=== PATIENT | male | born 1990 | race Caucasian/White ===

== ENCOUNTER → 2017-08-17 | Outpatient (CLI) | payer BC ==
[~2017-08-17] MED LIST: AZITHROMYCIN 2250 MG PO; FLEXERIL PO; HYDROCODON-ACE1 EAC7 PO; PROTONIX40 M2 PO; RITALIN5 MG PO; ZOFRAN ODT4 MG PO
== END ==
LOC: M.RAD 14:07
DX: M25.531 Pain in right wrist (principal); M25.532 Pain in left wrist; M79.641 Pain in right hand; M79.642 Pain in left hand; M79.89 Other specified soft tissue disorders

== ENCOUNTER 2018-11-03 20:18 | Emergency (ER) | payer BC ==
[~2018-11-03] VITALS: Ht 185.4 cm; Wt 122.5 kg
[2018-11-03] MEDS ORDERED: NORCO 7.5-3251 EACH PO (22:11)
[2018-11-03] MEDS ORDERED: CLEOCIN HCL150 MG PO (22:11)
[2018-11-03 22:31] VITALS: BP 146/86
== END 2018-11-03 22:33 | disposition home or self-care (01) ==
LOC: M.ERS 20:18
DX: S61.313A Laceration without foreign body of left middle finger with damage to nail, initial encounter (principal); F17.220 Nicotine dependence, chewing tobacco, uncomplicated; K21.9 Gastro-esophageal reflux disease without esophagitis; F98.8 Other specified behavioral and emotional disorders with onset usually occurring in childhood and adolescence; Z88.1 Allergy status to other antibiotic agents; Z88.0 Allergy status to penicillin; Z88.2 Allergy status to sulfonamides; W23.1XXA Caught, crushed, jammed, or pinched between stationary objects, initial encounter; Y92.89 Other specified places as the place of occurrence of the external cause; Y93.89 Activity, other specified; Y99.8 Other external cause status

== ENCOUNTER 2021-01-07 14:03 | Inpatient (IN) | payer BC ==
[~2021-01-07] VITALS: Ht 185.4 cm; Wt 131.5 kg
[~2021-01-07 14:03] MED LIST changes: +CLEOCIN HCL150 MG PO; +NORCO 7.5-3251 EACH PO
[2021-01-07 14:13] VITALS: BP 175/102
[2021-01-07 15:05] LABS: ABSOLUTE LYMPHOCYTES 0.3 thou/uL (0.8-5.3); ABSOLUTE MONOCYTES 0.2 thou/uL (0.0-1.2); ABSOLUTE NEUTROPHILS 6.2 thou/uL (1.6-8.1); BASOPHILS 0.3 %; HEMATOCRIT 50.7 % (42.0-52.0); LYMPHOCYTES 3.8 %; MCH 30.8 pg (26.0-34.0); MCHC 33.5 g/dL (28.0-37.0); MONOCYTES 2.7 %; MPV 7.3 fl. (7.2-11.1); NUCLEATED RBCS 0 /100WBC; PLATELET COUNT* 241 thou/uL (150-400); POLYS 93.2 %; RBC 5.51 mil/uL (4.50-6.00); RDW-CV 14.2 % (10.5-14.5); WBC 6.7 thou/uL (4.0-11.0)
[2021-01-07] MEDS ORDERED: LISINOPRIL5 MG PO (15:13)
[2021-01-07 15:19] LABS: CALCIUM 8.7 mg/dL (8.5-10.1); CREATININE 1.7 mg/dL (0.6-1.3)
[2021-01-07 15:37] LABS: TOTAL BILIRUBIN 0.3 mg/dL (<0.1-1.0); TOTAL PROTEIN 7.7 g/dL (6.4-8.2)
[2021-01-07 16:16] VITALS: BP 150/84
[2021-01-07 16:35] VITALS: BP 149/91
[2021-01-07] MEDS ORDERED: PROAIR HFA8.5 GM PO (17:03)
[2021-01-07] MEDS ORDERED: DORYX MPC120 MG PO (17:04)
[2021-01-07] MEDS ORDERED: MONTELUKAST SODI4 M1 PO (17:05)
[2021-01-07] MEDS ORDERED: PREDNISONE 10 M10 M1 PO (17:05)
--- NOTE | 2021-01-07 17:13 | EKG ---
[place] [address] ELECTROCARDIOGRAM REPORT Name: DIOGO DING Room: [address] ADM IN .R.#: [id number] Admission: 01/07/21 Attend Phys: Moses June, Discharge: Date of : 88 Date of Service: 01/07/21 1456 Report #: [id number] THIS REPORT FOR: //name// [facility] ED Test Date: 2021-01-07 Test Time: 14:56:24 Pat Name: DIOGO DING Department: Room: [facility] Gender: M Global Program Manager: JACK : 1990 Requested By: Salvatore Garcia Order Number: [id number] MD: Kobi Grimaldo Measurements Intervals [place] Rate: 89 P: 42 NM: 134 QRS: 38 QRSD: 84 T: 48 QT: 348 QTc: 424 Interpretive Statements Sinus rhythm Consider right atrial enlargement Baseline wander in lead(s) III No previous ECG available for comparison Electronically Signed On 01-07-2021 17:12:55 CDT by Kobi Grimaldo [email or web address] <ELECTRONICALLY SIGNED> By: Kobi Grimaldo MD, [facility] 01/07/21 1712 1456 1456 Kobi Grimaldo MD, [facility] /EPI
[2021-01-07 22:40] VITALS: BP 145/87
[2021-01-08 00:42] VITALS: BP 150/86
[2021-01-08 05:08] VITALS: BP 153/94
[2021-01-08 07:30] VITALS: BP 145/90
[2021-01-08 08:29] LABS: HEMATOCRIT 47.7 % (42.0-52.0); HEMOGLOBIN 16.1 gm/dL (14.0-18.0); MCH 30.8 pg (26.0-34.0); MCHC 33.8 g/dL (28.0-37.0); MCV 91.1 fL (80.0-100.0); MPV 7.4 fl. (7.2-11.1); NUCLEATED RBCS 0 /100WBC; PLATELET COUNT* 284 thou/uL (150-400); RBC 5.23 mil/uL (4.50-6.00); RDW-CV 14.2 % (10.5-14.5); WBC 7.8 thou/uL (4.0-11.0)
[2021-01-08 08:53] LABS: CALCIUM 8.3 mg/dL (8.5-10.1); CREATININE 1.4 mg/dL (0.6-1.3); POTASSIUM 4.4 mmol/L (3.5-5.1)
[2021-01-08 09:15] LABS: ABSOLUTE LYMPHOCYTES 0.2 thou/uL (0.8-5.3); ABSOLUTE MONOCYTES 0.2 thou/uL (0.0-1.2); ABSOLUTE NEUTROPHILS 7.4 thou/uL (1.6-8.1); PLATELET ESTIMATE ADEQUATE
[2021-01-08 09:16] LABS: ANISOCYTOSIS 1+; POIKILOCYTOSIS 1+
[2021-01-08 11:45] LABS: AMP/METHAMP Negative (Negative); BARBITURATES Negative (Negative); BENZODIAZEPINES Negative (Negative); COCAINE Negative (Negative); METHADONE Negative (Negative); OPIATES Negative (Negative); PCP Negative (Negative); THC POSITIVE (Negative)
[2021-01-08 12:00] VITALS: BP 158/83
[2021-01-08 14:57] LABS: CALCIUM 8.5 mg/dL (8.5-10.1); CREATININE 1.3 mg/dL (0.6-1.3); MAGNESIUM 2.3 mg/dL (1.8-2.4); POTASSIUM 5.1 mmol/L (3.5-5.1)
[2021-01-08 15:39] LABS: ALBUMIN 2.6 g/dL (3.4-5.0); DIRECT BILIRUBIN 0.1 mg/dL (<0.1-0.3); TOTAL BILIRUBIN 0.3 mg/dL (<0.1-1.0); TOTAL PROTEIN 7.2 g/dL (6.4-8.2)
[2021-01-08 16:00] VITALS: BP 151/93
[2021-01-08 21:00] VITALS: BP 148/82
[2021-01-09] VITALS (7 sets, daily range): BP systolic 116–144; BP diastolic 77–98
[2021-01-09 04:52] LABS: HEMATOCRIT 47.4 % (42.0-52.0); HEMOGLOBIN 15.8 gm/dL (14.0-18.0); MCH 30.7 pg (26.0-34.0); MCHC 33.3 g/dL (28.0-37.0); MCV 92.3 fL (80.0-100.0); MPV 7.1 fl. (7.2-11.1); RBC 5.14 mil/uL (4.50-6.00); RDW-CV 14.5 % (10.5-14.5); WBC 9.3 thou/uL (4.0-11.0)
[2021-01-09 05:23] LABS: CALCIUM 8.7 mg/dL (8.5-10.1); CREATININE 1.3 mg/dL (0.6-1.3); POTASSIUM 5.1 mmol/L (3.5-5.1)
[2021-01-09 12:17] LABS: BE 3.4 mmol/L (-2 to +3); PCO2 37.5 mmHg (35.0-45.0); PO2 77.1 mmHg (75.0-100.0); pH 7.474 (7.340-7.450)
[2021-01-09 16:33] LABS: ALBUMIN 2.4 g/dL (3.4-5.0); CALCIUM 8.5 mg/dL (8.5-10.1); CREATININE 1.3 mg/dL (0.6-1.3); POTASSIUM 4.5 mmol/L (3.5-5.1); TOTAL BILIRUBIN 0.3 mg/dL (<0.1-1.0); TOTAL PROTEIN 6.9 g/dL (6.4-8.2)
--- NOTE | 2021-01-09 17:38 | 2DMMODE ---
[place] [address] 2 D/M-MODE ECHOCARDIOGRAM Name: TIMURDIOGO T Room: [address] IN [facility]#: [id number] Admission: 01/07/21 Attend Phys: Moses June, Discharge: Date of : 88 Date of Service: 01/09/21 1738 Report #: [id number] THIS REPORT FOR: cc: Oliva Lowry Linda J. DO Liston, Michael J. MD [facility] ~ APPROVED REPORT Study performed: 01/09/2021 16:12:29 EXAM: Comprehensive 2D, Doppler, and color-flow Echocardiogram Patient Location: In-Patient Room #: [facility] Status: routine BSA: 2.52 HR: 81 bpm BP: 141/87 mmHg Rhythm: NSR Other Information Study Quality: Good Indications Dyspnea 2D Dimensions IVSd: 11.72 (7-11mm) LVOT Diam: 22.17 (18-24mm) LVDd: 58.29 mm PWd: 9.33 (7-11mm) Ascending Ao: 29.71 (22-36mm) LVDs: 32.54 (25-40mm) Aortic Root: 35.06 mm Volumes Left Atrial Volume (Systole) LA ESV Index: 16.20 mL/m2 Aortic Valve AoV Peak Amadou.: 1.20 m/s AO Peak Gr.: 5.80 mmHg LVOT Max P.69 mmHg AO Mean Gr.: 3.08 mmHg LVOT Mean P.56 mmHg LVOT Max V: 1.19 m/s AO V2 VTI: 22.63 cm LVOT Mean V: 0.72 m/s ROSS (VTI): 3.97 cm2 LVOT V1 VTI: 23.24 [place] [address] 2 D/M-MODE ECHOCARDIOGRAM Name: DIOGO DING Room: [address] IN ..#: [id number] Admission: 01/07/21 Attend Phys: Moses June, Discharge: Date of : 88 Date of Service: 01/09/21 1738 Report #: [id number] Mitral Valve E/A Ratio: 1.25 MV Decel. Time: 394.93 ms MV E Max Amadou.: 0.57 m/s MV PHT: 114.53 ms MVA (PHT): 1.92 cm2 TDI E/Lateral E': 3.80 E/Medial E': 4.07 Medial E' Amadou.: 0.14 m/s Lateral E' Amadou.: 0.15 m/s Pulmonary Valve PV Peak Amadou.: 0.98 m/s PV Peak Gr.: 3.87 mmHg Left Ventricle The left ventricle is normal size. There is normal LV segmental wall motion. There is normal left ventricular wall thickness. Left ventricular systolic function is normal. LVEF is 55-60%. The left ventricular diastolic function is normal. Right Ventricle The right ventricle is normal size. The right ventricular systolic function is normal. Atria The left atrium size is normal. The right atrium size is normal. Aortic Valve The aortic valve is normal in structure. No aortic regurgitation is present. There is no aortic valvular stenosis. Mitral Valve The mitral valve is normal in structure. There is no mitral valve regurgitation noted. No evidence of mitral valve stenosis. Tricuspid Valve The tricuspid valve is normal in structure. There is no tricuspid valve regurgitation noted. Pulmonic Valve The pulmonary valve is normal in structure. There is no pulmonic valvular regurgitation[place] [address] 2 D/M-MODE ECHOCARDIOGRAM Name: TIMURDIOGO CANCINO [place] Room: [address] IN [facility]#: [id number] Admission: 01/07/21 Attend Phys: Moses June, Discharge: Date of : 88 Date of Service: 01/09/21 1738 Report #: [id number] The aortic root is normal in size. IVC is normal in size and collapses >50% with inspiration. Pericardium There is no pericardial effusion. <Conclusion> The left ventricle is normal size. There is normal left ventricular wall thickness. Left ventricular systolic function is normal. LVEF is 55-60%. The left ventricular diastolic function is normal. There is normal LV segmental wall motion. IVC is normal in size and collapses >50% with inspiration. <ELECTRONICALLY SIGNED> By: Cabrera Lowe MD, FACC 01/09/21 1738 1738 1738 Cabrera Lowe MD, FACC /INF
--- NOTE | 2021-01-09 22:06 | CON ---
[address] [address] CONSULTATION Name: DIOGO DING [place] Room: [address] IN M.R.#: [id number] Admission: 01/07/21 Attend Phys: Moses June MD Discharge: Date of : 88 Report #: [id number] THIS REPORT FOR: cc: Oliva Lowry Linda J. DO Pervez, Adeel MD ~ DATE OF CONSULTATION: 01/08/2021 REQUESTING PHYSICIAN: Dr. Moses June. INDICATION FOR CONSULTATION: Acute hypoxemic respiratory failure secondary to COVID-19. HISTORY OF PRESENT ILLNESS: A 30-year-old gentleman, past medical history includes a history of smoking. He now uses E-cigarettes. He does not have a previous history of COPD. The patient was diagnosed with COVID-19 about a week ago. He has taken outpatient antibiotics, started doxycycline on Thursday; however, he continues to have increase in shortness of breath, has also been coughing. He has been bringing up significant amounts of yellow sputum and some hemorrhagic sputum as well. He has a cup, which is partly full of sputum beside his bedside. He denies any upper respiratory complaints or fever. There is only mild swelling of lower extremities. REVIEW OF SYSTEMS: 12 points is negative except as mentioned above; however, the patient is severely hypoxemic and is on a heated high-flow nasal cannula with 85% FiO2 and 45 liters flow to maintain O2 saturation in the low 90s. The patient also is noted to be in rhabdomyolysis. His CPK was around 11,000 on initial presentation and he had a creatinine elevated to 1.7, which since then has been improving. The patient has been fluid resuscitated from the Emergency Room. PAST MEDICAL HISTORY: Concussion, right shoulder surgery, GERD, ADHD, has previously been diagnosed. It is not fully clear to me as to whether he may have had obstructive sleep apnea instead which has similar symptoms, back pain, wisdom tooth removal, obesity, body mass index 38, hypertension. SOCIAL HISTORY: Extensive history of smoking. I am unable to quantify exactly at this time. He says he now uses E-cigarettes, also chews tobacco. Does use alcohol, but there is no known history of heavy alcohol use. No known history of illegal drug use. CURRENT MEDICATIONS: List in spotflux reviewed. HOME MEDICATIONS: List in spotflux [place] [address] CONSULTATION Name: DIOGO DING Room: [address]#: [id number] Admission: 01/07/21 Attend Phys: Moses June MD Discharge: Date of : 88 Report #: [id number] ALLERGIES: PENICILLIN, SULFONAMIDE ANTIBIOTICS, AND AZITHROMYCIN. However, he tolerates cephalosporins without problems. FAMILY HISTORY: No pertinent family history. PHYSICAL EXAMINATION: GENERAL: He is alert, awake and oriented. VITAL SIGNS: He is severely hypoxemic, 85% FiO2, 45 liters flow, heated high-flow nasal cannula, saturating 91%. Pulse is 94 and blood pressure is 158/83. His respiratory rate is in the low 20s. His temperature is 37.1. Body mass index 38. HEENT: Head is normocephalic and atraumatic. Pupils are equal and reactive. There is no throat erythema. He has a narrow airway. NECK: Does not show raised JVP asymmetry, mass or lymph nodes. CHEST: Symmetrical expansion on inspection and palpation. On auscultation, breath sounds are bilaterally equal, but decreased. Expirations are prolonged. There are occasional end expiratory wheezes. HEART: Regular. There is no murmur. ABDOMEN: Soft and nontender. EXTREMITIES: Lower extremities show trace edema, no calf tenderness. SKIN: Dry and intact. NEUROLOGIC: Moves all extremities bilaterally equally and spontaneously with no focal deficit identified. LABORATORY DATA: The patient's chest x-ray performed yesterday is reviewed and is consistent with extensive bilateral infiltrates, consistent with COVID-19. Considering that on his lab work, he has 8% bands and he also had purulent sputum. I suspect that there is a secondary bacterial infection as well. ASSESSMENT AND PLAN: 1. Acute hypoxemic respiratory failure. Continue to titrate oxygen. I suspect that he may have underlying obstructive sleep apnea. We will move him to a negative pressure room and start him on a BiPAP while asleep. We preferred prone position while asleep and if not possible, then on sides, avoid sleeping supine, continue out of bed to chair. 2. COVID-19. Continue with dexamethasone. See discussion regarding steroid dose as below. Overall, the benefit of remdesivir also appears to be greater than the risk and therefore, I recommend continuing the remdesivir as well. His LFTs were elevated yesterday. I will repeat LFTs today and then reassess. I would have considered Actemra; however, this is not available at this time, I do not feel strongly either way regarding giving him or holding off of convalescent plasma. There is one 2 unit already ordered. I feel that this is a reasonable option. 2. Bronchospasm. He is bronchospastic. For this reason, I recommend that we [address] [id number] CONSULTATION Name: DIOGO DING Room: [address] IN [facility]#: [id number] Admission: 01/07/21 Attend Phys: Moses June MD Discharge: Date of : 88 Report #: [id number] give him nebulized bronchodilators as well. In addition, it is for this reason that I am going ahead and giving him Solu-Medrol and considering that he is significantly hypoxemic as well, I increased the dexamethasone dose. In order to avoid hyperglycemia, we will go ahead and put him on an insulin sliding scale. 3. Pulmonary infiltrates/bandemia/purulent/hemorrhagic sputum. He has significant sputum production. See discussion of cup as above. He also has 8% bands. This is consistent with a superimposed bacterial infection. I will go ahead and treat him initially with Levaquin and Zyvox after obtaining cultures. The plan will be to continue Levaquin for a week. If he improves and there is no MRSA cultured, I will plan to discontinue Zyvox sooner. 4. DVT prophylaxis/evaluation for thromboembolic phenomena. There is small amount of blood in his sputum; however, the benefit of giving him prophylactic dose Lovenox still appear to outweigh risks and therefore, I would continue. We will also do venous Dopplers. 5. Rhabdomyolysis with acute renal failure. There is an elevation in creatinine, initially up to 1.7. There is also CPK elevated to 11,000. I will repeat a CPK now, creatinine which I have ordered is already back and it is coming down. If CPK is significantly elevated, then this will be an indication to continue IV fluids and this is one of the rare indications in which IV fluids and Lasix are at times recommended simultaneously and if CPK is high, then we will give him fluids to continue to remove CPK and at the same time, we will give him Lasix in order to avoid fluid overload. 6. Elevated LFTs. Repeat pending. We will review. If they are not increasing further, then my plan is to continue remdesivir, but we will need to follow this closely. 7. Obesity/suspected underlying obstructive sleep apnea. 8. The patient is critically ill at this time. Total time spent providing critical care to this patient today exceeds 40 minutes. <ELECTRONICALLY SIGNED> By: Kenneth Hand MD 01/09/21 2206 1409 1824Akatya Hand MD /nt
[2021-01-10 00:03] VITALS: BP 122/55; BP 128/50
[2021-01-10 04:19] VITALS: BP 141/77
[2021-01-10 05:20] LABS: ABSOLUTE LYMPHOCYTES 0.6 thou/uL (0.8-5.3); ABSOLUTE MONOCYTES 0.6 thou/uL (0.0-1.2); BASOPHILS 0.2 %; HEMATOCRIT 46.8 % (42.0-52.0); HEMOGLOBIN 15.5 gm/dL (14.0-18.0); LYMPHOCYTES 7.7 %; MCH 30.6 pg (26.0-34.0); MCHC 33.1 g/dL (28.0-37.0); MCV 92.5 fL (80.0-100.0); MONOCYTES 6.9 %; NUCLEATED RBCS 0 /100WBC; PLATELET COUNT* 395 thou/uL (150-400); POLYS 85.2 %; RBC 5.06 mil/uL (4.50-6.00); WBC 8.2 thou/uL (4.0-11.0)
[2021-01-10 05:34] LABS: ALBUMIN 2.4 g/dL (3.4-5.0); CALCIUM 8.7 mg/dL (8.5-10.1); CREATININE 1.4 mg/dL (0.6-1.3); MAGNESIUM 2.4 mg/dL (1.8-2.4); POTASSIUM 4.8 mmol/L (3.5-5.1); TOTAL BILIRUBIN 0.3 mg/dL (<0.1-1.0); TOTAL PROTEIN 6.8 g/dL (6.4-8.2)
[2021-01-10 08:00] VITALS: BP 135/72
[2021-01-10 12:45] VITALS: BP 142/89
[2021-01-10 15:35] LABS: CALCIUM 8.3 mg/dL (8.5-10.1); CREATININE 1.2 mg/dL (0.6-1.3); POTASSIUM 4.5 mmol/L (3.5-5.1)
[2021-01-10 15:51] LABS: PCO2 40.3 mmHg (35.0-45.0); pH 7.447 (7.340-7.450)
[2021-01-10 15:52] VITALS: BP 136/80
[2021-01-10 15:54] LABS: PO2 53.7 mmHg (75.0-100.0)
[2021-01-10 20:00] VITALS: BP 135/80
[2021-01-11 00:51] VITALS: BP 144/74
[2021-01-11 04:41] VITALS: BP 140/80
[2021-01-11 05:15] LABS: ABSOLUTE LYMPHOCYTES 0.7 thou/uL (0.8-5.3); ABSOLUTE MONOCYTES 0.9 thou/uL (0.0-1.2); BASOPHILS 0.1 %; HEMATOCRIT 45.1 % (42.0-52.0); LYMPHOCYTES 8.3 %; MCH 30.5 pg (26.0-34.0); MCHC 33.4 g/dL (28.0-37.0); MCV 91.6 fL (80.0-100.0); MONOCYTES 10.1 %; NUCLEATED RBCS 0 /100WBC; PLATELET COUNT* 413 thou/uL (150-400); POLYS 81.5 %; RBC 4.93 mil/uL (4.50-6.00); RDW-CV 13.9 % (10.5-14.5); WBC 8.6 thou/uL (4.0-11.0)
[2021-01-11 05:46] LABS: ALBUMIN 2.6 g/dL (3.4-5.0); CALCIUM 8.2 mg/dL (8.5-10.1); CREATININE 1.4 mg/dL (0.6-1.3); MAGNESIUM 2.5 mg/dL (1.8-2.4); POTASSIUM 4.7 mmol/L (3.5-5.1); TOTAL BILIRUBIN 0.4 mg/dL (<0.1-1.0); TOTAL PROTEIN 6.6 g/dL (6.4-8.2)
[2021-01-11 08:00] VITALS: BP 126/70
[2021-01-11 12:30] VITALS: BP 139/82
[2021-01-11 15:54] VITALS: BP 127/79
[2021-01-11 20:00] VITALS: BP 143/84
[2021-01-12 00:25] VITALS: BP 120/58
[2021-01-12 04:33] VITALS: BP 133/80
[2021-01-12 05:22] LABS: ABSOLUTE LYMPHOCYTES 0.7 thou/uL (0.8-5.3); ABSOLUTE MONOCYTES 0.8 thou/uL (0.0-1.2); ABSOLUTE NEUTROPHILS 7.7 thou/uL (1.6-8.1); BASOPHILS 0.2 %; HEMATOCRIT 45.3 % (42.0-52.0); HEMOGLOBIN 15.4 gm/dL (14.0-18.0); LYMPHOCYTES 7.6 %; MCH 30.9 pg (26.0-34.0); MCHC 34.1 g/dL (28.0-37.0); MCV 90.8 fL (80.0-100.0); MONOCYTES 8.8 %; MPV 6.9 fl. (7.2-11.1); NUCLEATED RBCS 0 /100WBC; PLATELET COUNT* 437 thou/uL (150-400); POLYS 83.4 %; RBC 4.99 mil/uL (4.50-6.00); RDW-CV 13.5 % (10.5-14.5); WBC 9.2 thou/uL (4.0-11.0)
[2021-01-12 05:26] LABS: ALBUMIN 2.6 g/dL (3.4-5.0); CALCIUM 8.2 mg/dL (8.5-10.1); CREATININE 1.3 mg/dL (0.6-1.3); MAGNESIUM 2.6 mg/dL (1.8-2.4); POTASSIUM 5.4 mmol/L (3.5-5.1); TOTAL BILIRUBIN 0.5 mg/dL (<0.1-1.0); TOTAL PROTEIN 6.5 g/dL (6.4-8.2)
[2021-01-12 08:00] VITALS: BP 136/69
[2021-01-12 12:00] VITALS: BP 126/71
[2021-01-12 16:00] VITALS: BP 124/73
[2021-01-12 20:00] VITALS: BP 146/71
[2021-01-13 00:28] VITALS: BP 129/66
[2021-01-13 04:13] VITALS: BP 137/95
[2021-01-13 08:00] VITALS: BP 115/63
[2021-01-13 11:26] VITALS: BP 137/78
[2021-01-13 12:45] VITALS: BP 124/62
[2021-01-13 20:00] VITALS: BP 136/73
[2021-01-14] VITALS: BP 144/77
[2021-01-14 04:00] VITALS: BP 141/75
[2021-01-14 04:37] LABS: ABSOLUTE LYMPHOCYTES 0.8 thou/uL (0.8-5.3); ABSOLUTE MONOCYTES 0.9 thou/uL (0.0-1.2); ABSOLUTE NEUTROPHILS 9.7 thou/uL (1.6-8.1); BASOPHILS 0.1 %; HEMATOCRIT 47.9 % (42.0-52.0); HEMOGLOBIN 16.3 gm/dL (14.0-18.0); LYMPHOCYTES 7.2 %; MCH 30.8 pg (26.0-34.0); MCV 90.6 fL (80.0-100.0); MPV 6.8 fl. (7.2-11.1); NUCLEATED RBCS 0 /100WBC; PLATELET COUNT* 442 thou/uL (150-400); POLYS 84.7 %; RBC 5.29 mil/uL (4.50-6.00); RDW-CV 13.6 % (10.5-14.5); WBC 11.5 thou/uL (4.0-11.0)
[2021-01-14 04:54] LABS: ALBUMIN 2.7 g/dL (3.4-5.0); CALCIUM 8.4 mg/dL (8.5-10.1); CREATININE 1.5 mg/dL (0.6-1.3); MAGNESIUM 2.3 mg/dL (1.8-2.4); POTASSIUM 5.7 mmol/L (3.5-5.1); TOTAL BILIRUBIN 0.5 mg/dL (<0.1-1.0); TOTAL PROTEIN 6.1 g/dL (6.4-8.2)
[2021-01-14 08:00] VITALS: BP 123/68
[2021-01-14 12:00] VITALS: BP 136/63
[2021-01-14 13:10] LABS: BE -0.4 mmol/L (-2 to +3); PCO2 34.4 mmHg (35.0-45.0); pH 7.441 (7.340-7.450)
[2021-01-14 13:12] LABS: PO2 57.6 mmHg (75.0-100.0)
[2021-01-14 16:00] VITALS: BP 113/68
[2021-01-15 00:48] VITALS: BP 145/73
[2021-01-15 04:30] VITALS: BP 145/65
[2021-01-15 08:00] VITALS: BP 112/51
[2021-01-15 08:31] LABS: CREATININE 1.2 mg/dL (0.6-1.3); POTASSIUM 4.8 mmol/L (3.5-5.1)
[2021-01-15 12:00] VITALS: BP 124/79
[2021-01-15 16:00] VITALS: BP 122/65
[2021-01-15 16:31] LABS: BE 0.7 mmol/L (-2 to +3); PO2 76.4 mmHg (75.0-100.0); pH 7.439 (7.340-7.450)
[2021-01-15 16:34] LABS: ALBUMIN 2.7 g/dL (3.4-5.0); CALCIUM 8.3 mg/dL (8.5-10.1); CREATININE 1.2 mg/dL (0.6-1.3); POTASSIUM 4.9 mmol/L (3.5-5.1); TOTAL BILIRUBIN 0.5 mg/dL (<0.1-1.0); TOTAL PROTEIN 5.8 g/dL (6.4-8.2)
[2021-01-16 00:46] VITALS: BP 142/79
[2021-01-16 04:24] VITALS: BP 125/71
[2021-01-16 04:51] LABS: MPV 7.2 fl. (7.2-11.1); NUCLEATED RBCS 0 /100WBC
[2021-01-16 04:53] LABS: HEMATOCRIT 46.6 % (42.0-52.0); HEMOGLOBIN 15.7 gm/dL (14.0-18.0); MCH 30.3 pg (26.0-34.0); MCHC 33.7 g/dL (28.0-37.0); PLATELET COUNT* 419 thou/uL (150-400); RBC 5.18 mil/uL (4.50-6.00); RDW-CV 13.1 % (10.5-14.5); WBC 11.7 thou/uL (4.0-11.0)
[2021-01-16 05:25] LABS: ALBUMIN 2.5 g/dL (3.4-5.0); CALCIUM 8.2 mg/dL (8.5-10.1); CREATININE 1.1 mg/dL (0.6-1.3); MAGNESIUM 2.1 mg/dL (1.8-2.4); POTASSIUM 5.1 mmol/L (3.5-5.1); TOTAL BILIRUBIN 0.6 mg/dL (<0.1-1.0); TOTAL PROTEIN 5.9 g/dL (6.4-8.2)
[2021-01-16 06:05] LABS: ABSOLUTE LYMPHOCYTES 0.7 thou/uL (0.8-5.3); ABSOLUTE MONOCYTES 0.5 thou/uL (0.0-1.2); ABSOLUTE NEUTROPHILS 10.5 thou/uL (1.6-8.1); ANISOCYTOSIS 1+; PLATELET ESTIMATE INCREASED
[2021-01-16 06:06] LABS: POIKILOCYTOSIS 1+
[2021-01-16 07:20] VITALS: BP 129/78
[2021-01-16 11:25] VITALS: BP 134/67
[2021-01-16 17:20] VITALS: BP 152/76
[2021-01-16 19:30] VITALS: BP 138/81
[2021-01-17] VITALS: BP 134/78
[2021-01-17 04:00] VITALS: BP 117/63
[2021-01-17 05:03] LABS: ABSOLUTE BASOPHILS 0.1 thou/uL (0.0-0.2); ABSOLUTE MONOCYTES 0.8 thou/uL (0.0-1.2); ABSOLUTE NEUTROPHILS 13.6 thou/uL (1.6-8.1); BASOPHILS 0.4 %; HEMATOCRIT 49.6 % (42.0-52.0); HEMOGLOBIN 16.5 gm/dL (14.0-18.0); LYMPHOCYTES 6.3 %; MCHC 33.3 g/dL (28.0-37.0); MCV 90.1 fL (80.0-100.0); MONOCYTES 5.4 %; MPV 7.1 fl. (7.2-11.1); NUCLEATED RBCS 0 /100WBC; PLATELET COUNT* 447 thou/uL (150-400); POLYS 87.9 %; RBC 5.51 mil/uL (4.50-6.00); RDW-CV 13.1 % (10.5-14.5); WBC 15.5 thou/uL (4.0-11.0)
[2021-01-17 05:20] LABS: ALBUMIN 2.8 g/dL (3.4-5.0); CALCIUM 8.2 mg/dL (8.5-10.1); CREATININE 1.1 mg/dL (0.6-1.3); POTASSIUM 4.8 mmol/L (3.5-5.1); TOTAL BILIRUBIN 0.6 mg/dL (<0.1-1.0); TOTAL PROTEIN 6.4 g/dL (6.4-8.2)
[2021-01-17 08:30] VITALS: BP 139/77
[2021-01-17 12:00] VITALS: BP 118/43
[2021-01-17 16:00] VITALS: BP 112/54
[2021-01-17 20:00] VITALS: BP 101/62
[2021-01-18 00:01] VITALS: BP 98/65
[2021-01-18 04:00] VITALS: BP 102/69
[2021-01-18 08:35] VITALS: BP 102/66
[2021-01-18 09:28] LABS: ABSOLUTE LYMPHOCYTES 1.4 thou/uL (0.8-5.3); ABSOLUTE MONOCYTES 1.7 thou/uL (0.0-1.2); ABSOLUTE NEUTROPHILS 15.1 thou/uL (1.6-8.1); BASOPHILS 0.1 %; HEMATOCRIT 49.4 % (42.0-52.0); HEMOGLOBIN 16.9 gm/dL (14.0-18.0); LYMPHOCYTES 7.7 %; MCH 30.7 pg (26.0-34.0); MCHC 34.3 g/dL (28.0-37.0); MCV 89.6 fL (80.0-100.0); MONOCYTES 9.5 %; MPV 7.3 fl. (7.2-11.1); NUCLEATED RBCS 0 /100WBC; PLATELET COUNT* 443 thou/uL (150-400); POLYS 82.7 %; RBC 5.51 mil/uL (4.50-6.00); RDW-CV 13.3 % (10.5-14.5); WBC 18.2 thou/uL (4.0-11.0)
[2021-01-18 09:40] LABS: ALBUMIN 2.8 g/dL (3.4-5.0); CALCIUM 8.6 mg/dL (8.5-10.1); CREATININE 1.2 mg/dL (0.6-1.3); POTASSIUM 4.5 mmol/L (3.5-5.1); TOTAL BILIRUBIN 0.7 mg/dL (<0.1-1.0); TOTAL PROTEIN 6.3 g/dL (6.4-8.2)
[2021-01-18 12:16] VITALS: BP 122/71
[2021-01-18 16:00] VITALS: BP 116/70
[2021-01-18 19:45] VITALS: BP 119/66
[2021-01-19 00:32] VITALS: BP 100/53
[2021-01-19 04:29] VITALS: BP 112/62
[2021-01-19 04:31] LABS: HEMATOCRIT 49.8 % (42.0-52.0); HEMOGLOBIN 16.5 gm/dL (14.0-18.0); MCH 29.7 pg (26.0-34.0); MCHC 33.1 g/dL (28.0-37.0); MCV 89.7 fL (80.0-100.0); MPV 7.3 fl. (7.2-11.1); RBC 5.55 mil/uL (4.50-6.00); RDW-CV 13.3 % (10.5-14.5); WBC 15.5 thou/uL (4.0-11.0)
[2021-01-19 05:02] LABS: ALBUMIN 2.8 g/dL (3.4-5.0); CALCIUM 8.6 mg/dL (8.5-10.1); CREATININE 1.4 mg/dL (0.6-1.3); MAGNESIUM 2.4 mg/dL (1.8-2.4); POTASSIUM 5.2 mmol/L (3.5-5.1); TOTAL BILIRUBIN 0.7 mg/dL (<0.1-1.0); TOTAL PROTEIN 6.4 g/dL (6.4-8.2)
[2021-01-19 08:28] VITALS: BP 127/59
[2021-01-19 12:36] VITALS: BP 105/61
[2021-01-19 19:42] VITALS: BP 120/60
[2021-01-19 20:00] VITALS: BP 111/61
[2021-01-20] VITALS (7 sets, daily range): BP systolic 106–158; BP diastolic 61–74
[2021-01-20 04:44] LABS: HEMATOCRIT 49.5 % (42.0-52.0); HEMOGLOBIN 16.6 gm/dL (14.0-18.0); MCH 30.3 pg (26.0-34.0); MCHC 33.6 g/dL (28.0-37.0); MCV 90.4 fL (80.0-100.0); MPV 7.6 fl. (7.2-11.1); RBC 5.48 mil/uL (4.50-6.00); RDW-CV 13.3 % (10.5-14.5); WBC 15.9 thou/uL (4.0-11.0)
[2021-01-20 05:06] LABS: ALBUMIN 2.7 g/dL (3.4-5.0); CALCIUM 8.2 mg/dL (8.5-10.1); CREATININE 1.2 mg/dL (0.6-1.3); MAGNESIUM 2.3 mg/dL (1.8-2.4); POTASSIUM 4.6 mmol/L (3.5-5.1); TOTAL BILIRUBIN 0.6 mg/dL (<0.1-1.0)
[2021-01-20] MEDS ORDERED: LEXAPRO 10 MG T10 M1 PO (09:37)
[2021-01-20] MEDS ORDERED: PULMICORT0.5 MG/2 M INH (09:37)
[2021-01-20] MEDS ORDERED: NEBULIZER MISCELL (09:37)
[2021-01-20] MEDS ORDERED: OXYGEN MISCELL (09:37)
[2021-01-20] MEDS ORDERED: MUCINEX600 MG PO (09:37)
[2021-01-20] MEDS ORDERED: DEXAMETHASONE 22 M1 PO (09:37)
[2021-01-20] MEDS ORDERED: LASIX 20 MG TAB20 MG PO (09:37)
[2021-01-20] MEDS ORDERED: BROVANA15 MCG/2 M INH (09:37)
[2021-01-20] MEDS ORDERED: TESSALON PERLE100 MG PO (09:37)
[2021-01-20] MEDS ORDERED: IPRAT-ALBUT 0.5-3 ML INH (09:37)
[2021-01-21 04:40] VITALS: BP 115/52
[2021-01-21 08:00] VITALS: BP 104/57
[2021-01-21 12:00] VITALS: BP 141/76
[2021-01-21 16:00] VITALS: BP 124/67
[2021-01-21 20:20] VITALS: BP 120/67
[2021-01-22] VITALS (7 sets, daily range): BP systolic 99–147; BP diastolic 56–72
[2021-01-22 16:17] LABS: HEMATOCRIT 47.1 % (42.0-52.0); HEMOGLOBIN 16.5 gm/dL (14.0-18.0); MCH 31.1 pg (26.0-34.0); MCV 89.1 fL (80.0-100.0); MPV 7.5 fl. (7.2-11.1); NUCLEATED RBCS 0 /100WBC; RBC 5.29 mil/uL (4.50-6.00); RDW-CV 13.4 % (10.5-14.5)
[2021-01-22 16:23] LABS: PLATELET COUNT* 323 thou/uL (150-400)
[2021-01-22 16:32] LABS: CALCIUM 8.2 mg/dL (8.5-10.1); CREATININE 1.1 mg/dL (0.6-1.3); MAGNESIUM 2.1 mg/dL (1.8-2.4); POTASSIUM 4.4 mmol/L (3.5-5.1); TOTAL BILIRUBIN 0.7 mg/dL (<0.1-1.0); TOTAL PROTEIN 6.4 g/dL (6.4-8.2)
[2021-01-22 17:05] LABS: ABSOLUTE LYMPHOCYTES 0.4 thou/uL (0.8-5.3); ABSOLUTE MONOCYTES 0.4 thou/uL (0.0-1.2); ABSOLUTE NEUTROPHILS 8.3 thou/uL (1.6-8.1)
[2021-01-22 17:06] LABS: PLATELET ESTIMATE ADEQUATE
[2021-01-23 04:34] VITALS: BP 125/66
[2021-01-23 04:39] LABS: ABSOLUTE EOSINOPHILS 0.1 thou/uL (0.0-0.7); ABSOLUTE LYMPHOCYTES 1.4 thou/uL (0.8-5.3); ABSOLUTE NEUTROPHILS 7.4 thou/uL (1.6-8.1); BASOPHILS 0.3 %; EOSINOPHILS 0.8 %; HEMATOCRIT 45.6 % (42.0-52.0); HEMOGLOBIN 15.6 gm/dL (14.0-18.0); LYMPHOCYTES 13.8 %; MCH 30.6 pg (26.0-34.0); MCHC 34.2 g/dL (28.0-37.0); MCV 89.4 fL (80.0-100.0); MONOCYTES 9.7 %; MPV 7.4 fl. (7.2-11.1); NUCLEATED RBCS 0 /100WBC; PLATELET COUNT* 295 thou/uL (150-400); POLYS 75.4 %; RDW-CV 13.2 % (10.5-14.5); WBC 9.9 thou/uL (4.0-11.0)
[2021-01-23 05:13] LABS: ALBUMIN 2.8 g/dL (3.4-5.0); CALCIUM 8.4 mg/dL (8.5-10.1); CREATININE 0.9 mg/dL (0.6-1.3); MAGNESIUM 2.1 mg/dL (1.8-2.4); POTASSIUM 4.3 mmol/L (3.5-5.1); TOTAL BILIRUBIN 0.8 mg/dL (<0.1-1.0)
[2021-01-23 08:00] VITALS: BP 136/80
[2021-01-23 13:02] VITALS: BP 136/80
== END 2021-01-23 14:00 | disposition home or self-care (01) | DRG 177 ==
LOC: M.ERS 14:03 → M.ORTHSURG 15:16 → M.TBA-ER 15:16 → M.ORTHSURG 16:30
PROVIDERS: Family Medicine; Internal Medicine; Internal Medicine Critical Care Medicine; ADMIT Internal Medicine; ATTEND Internal Medicine
PROC: 5A0935A Assistance with Respiratory Ventilation, Less than 24 Consecutive Hours, High Flow/Velocity Cannula (ICD-10-PCS; principal; 2021-01-07)
PROC: XW033E5 Introduction of Remdesivir Anti-infective into Peripheral Vein, Percutaneous Approach, New Technology Group 5 (ICD-10-PCS; principal; 2021-01-07)
PROC: 5A0935A Assistance with Respiratory Ventilation, Less than 24 Consecutive Hours, High Flow/Velocity Cannula (ICD-10-PCS; 2021-01-08)
PROC: 5A09357 Assistance with Respiratory Ventilation, Less than 24 Consecutive Hours, Continuous Positive Airway Pressure (ICD-10-PCS; 2021-01-08)
PROC: XW13325 Transfusion of Convalescent Plasma (Nonautologous) into Peripheral Vein, Percutaneous Approach, New Technology Group 5 (ICD-10-PCS; 2021-01-09)
PROC: 5A0935A Assistance with Respiratory Ventilation, Less than 24 Consecutive Hours, High Flow/Velocity Cannula (ICD-10-PCS; 2021-01-09)
PROC: 5A09357 Assistance with Respiratory Ventilation, Less than 24 Consecutive Hours, Continuous Positive Airway Pressure (ICD-10-PCS; 2021-01-09)
PROC: 5A0935A Assistance with Respiratory Ventilation, Less than 24 Consecutive Hours, High Flow/Velocity Cannula (ICD-10-PCS; 2021-01-10)
PROC: 5A09457 Assistance with Respiratory Ventilation, 24-96 Consecutive Hours, Continuous Positive Airway Pressure (ICD-10-PCS; 2021-01-10)
PROC: 5A0935A Assistance with Respiratory Ventilation, Less than 24 Consecutive Hours, High Flow/Velocity Cannula (ICD-10-PCS; 2021-01-11)
PROC: 5A09357 Assistance with Respiratory Ventilation, Less than 24 Consecutive Hours, Continuous Positive Airway Pressure (ICD-10-PCS; 2021-01-11)
PROC: 5A0935A Assistance with Respiratory Ventilation, Less than 24 Consecutive Hours, High Flow/Velocity Cannula (ICD-10-PCS; 2021-01-12)
PROC: 5A09357 Assistance with Respiratory Ventilation, Less than 24 Consecutive Hours, Continuous Positive Airway Pressure (ICD-10-PCS; 2021-01-12)
PROC: 5A09357 Assistance with Respiratory Ventilation, Less than 24 Consecutive Hours, Continuous Positive Airway Pressure (ICD-10-PCS; 2021-01-13)
PROC: 5A0935A Assistance with Respiratory Ventilation, Less than 24 Consecutive Hours, High Flow/Velocity Cannula (ICD-10-PCS; 2021-01-13)
PROC: 5A09357 Assistance with Respiratory Ventilation, Less than 24 Consecutive Hours, Continuous Positive Airway Pressure (ICD-10-PCS; 2021-01-14)
PROC: 5A0935A Assistance with Respiratory Ventilation, Less than 24 Consecutive Hours, High Flow/Velocity Cannula (ICD-10-PCS; 2021-01-14)
PROC: 5A0935A Assistance with Respiratory Ventilation, Less than 24 Consecutive Hours, High Flow/Velocity Cannula (ICD-10-PCS; 2021-01-15)
PROC: 5A0935A Assistance with Respiratory Ventilation, Less than 24 Consecutive Hours, High Flow/Velocity Cannula (ICD-10-PCS; 2021-01-16)
PROC: 5A09357 Assistance with Respiratory Ventilation, Less than 24 Consecutive Hours, Continuous Positive Airway Pressure (ICD-10-PCS; 2021-01-16)
PROC: 5A09357 Assistance with Respiratory Ventilation, Less than 24 Consecutive Hours, Continuous Positive Airway Pressure (ICD-10-PCS; 2021-01-17)
PROC: 5A0935A Assistance with Respiratory Ventilation, Less than 24 Consecutive Hours, High Flow/Velocity Cannula (ICD-10-PCS; 2021-01-17)
PROC: 5A09357 Assistance with Respiratory Ventilation, Less than 24 Consecutive Hours, Continuous Positive Airway Pressure (ICD-10-PCS; 2021-01-18)
PROC: 5A0935A Assistance with Respiratory Ventilation, Less than 24 Consecutive Hours, High Flow/Velocity Cannula (ICD-10-PCS; 2021-01-18)
PROC: 5A0935A Assistance with Respiratory Ventilation, Less than 24 Consecutive Hours, High Flow/Velocity Cannula (ICD-10-PCS; 2021-01-19)
PROC: 5A09357 Assistance with Respiratory Ventilation, Less than 24 Consecutive Hours, Continuous Positive Airway Pressure (ICD-10-PCS; 2021-01-19)
PROC: 5A0935A Assistance with Respiratory Ventilation, Less than 24 Consecutive Hours, High Flow/Velocity Cannula (ICD-10-PCS; 2021-01-20)
PROC: 5A09357 Assistance with Respiratory Ventilation, Less than 24 Consecutive Hours, Continuous Positive Airway Pressure (ICD-10-PCS; 2021-01-20)
PROC: 5A0935A Assistance with Respiratory Ventilation, Less than 24 Consecutive Hours, High Flow/Velocity Cannula (ICD-10-PCS; 2021-01-21)
PROC: 5A09357 Assistance with Respiratory Ventilation, Less than 24 Consecutive Hours, Continuous Positive Airway Pressure (ICD-10-PCS; 2021-01-21)
PROC: 5A0935A Assistance with Respiratory Ventilation, Less than 24 Consecutive Hours, High Flow/Velocity Cannula (ICD-10-PCS; 2021-01-22)
PROC: 5A09357 Assistance with Respiratory Ventilation, Less than 24 Consecutive Hours, Continuous Positive Airway Pressure (ICD-10-PCS; 2021-01-22)
PROC: 5A09357 Assistance with Respiratory Ventilation, Less than 24 Consecutive Hours, Continuous Positive Airway Pressure (ICD-10-PCS; 2021-01-23)
PROC: 5A0935A Assistance with Respiratory Ventilation, Less than 24 Consecutive Hours, High Flow/Velocity Cannula (ICD-10-PCS; 2021-01-23)
DX: U07.1 COVID-19 (principal); J96.01 Acute respiratory failure with hypoxia; J12.82 Pneumonia due to coronavirus disease 2019; N17.0 Acute kidney failure with tubular necrosis; M62.82 Rhabdomyolysis; R04.2 Hemoptysis; K21.9 Gastro-esophageal reflux disease without esophagitis; F17.290 Nicotine dependence, other tobacco product, uncomplicated; F90.9 Attention-deficit hyperactivity disorder, unspecified type; G47.33 Obstructive sleep apnea (adult) (pediatric); E66.9 Obesity, unspecified; I10 Essential (primary) hypertension; J98.01 Acute bronchospasm; E83.51 Hypocalcemia; D72.825 Bandemia; Z88.0 Allergy status to penicillin; Z88.1 Allergy status to other antibiotic agents; Z88.2 Allergy status to sulfonamides; Z68.38 Body mass index [BMI] 38.0-38.9, adult

== ENCOUNTER → 2021-02-01 | Outpatient (CLI) | payer OTHER ==
[~2021-02-01] MED LIST changes: +BROVANA15 MCG/2 M INH; +DEXAMETHASONE 22 M1 PO; +DORYX MPC120 MG PO; +IPRAT-ALBUT 0.5-3 ML INH; +LASIX 20 MG TAB20 MG PO; +LEXAPRO 10 MG T10 M1 PO; +LISINOPRIL5 MG PO; +MONTELUKAST SODI4 M1 PO; +MUCINEX600 MG PO; +NEBULIZER MISCELL; +OXYGEN MISCELL; +PREDNISONE 10 M10 M1 PO; +PROAIR HFA8.5 GM PO; +PULMICORT0.5 MG/2 M INH; +TESSALON PERLE100 MG PO
== END ==
LOC: M.CT 12:27
PROVIDERS: ATTEND Nurse Practitioner
DX: J18.9 Pneumonia, unspecified organism (principal); Z86.16 Personal history of COVID-19

== ENCOUNTER → 2021-04-05 | Outpatient (CLI) | payer BC | LOC: M.ULTRA 14:54 | PROVIDERS: ATTEND Nurse Practitioner | DX: S39.94XD Unspecified injury of external genitals, subsequent encounter (principal); N50.811 Right testicular pain; X58.XXXA Exposure to other specified factors, initial encounter; Y93.89 Activity, other specified; Y92.89 Other specified places as the place of occurrence of the external cause; Y99.8 Other external cause status ==